=== PATIENT | female | born 1930 | race Caucasian/White ===

== ENCOUNTER 2018-05-30 14:24 | Emergency (ER) | payer MEDICARE, OTHER ==
[~2018-05-30] VITALS: Ht 152.4 cm; Wt 60.8 kg
[2018-05-30] MEDS ORDERED: LIPITOR10 MG PO (14:43)
[2018-05-30] MEDS ORDERED: PRESSURE VISION (14:44)
[2018-05-30] MEDS ORDERED: LUTEIN1 GM MISC (14:46)
[2018-05-30] MEDS ORDERED: VITAMIN D1000 UNIT PO (14:47)
[2018-05-30] MEDS ORDERED: ASPIRIN81 MG PO (14:47)
[2018-05-30] MEDS ORDERED: DIGOXIN125 MCG PO (15:27)
--- NOTE | 2018-05-30 17:13 | EKG ---
[facility] [address] [place] [address] Signed Sinus rhythm with sinus arrhythmia with occasional premature ventricular complexes Cannot rule out Anterior infarct , age undetermined Abnormal ECG No previous ECGs available Confirmed by WILBERTO VAZQUEZ MD ([id number] on 05/30/2018 5:12:57 PM Electronically Signed By: WILBERTO VAZQUEZ MD 05/30/18 1713 PATIENT NAME: OLLIEQUENTINVENICE Electrocardiogram DATE OF : 32 PHYSICIAN: WILBERTO VAZQUEZ MD REPORT #: [id number] REPORT IS CONFIDENTIAL AND NOT TO BE RELEASED WITHOUT AUTHORIZATION
== END 2018-05-30 15:43 | disposition home or self-care (01) ==
LOC: ED 14:24
DX: R00.2 Palpitations (principal); Z88.0 Allergy status to penicillin; Z88.2 Allergy status to sulfonamides; Z88.1 Allergy status to other antibiotic agents; Z79.899 Other long term (current) drug therapy
CPT/HCPCS: 71045; 80053; 84484; 85025; 85610; 93005; 93010; 99285-25